=== PATIENT | female | born 1980 | race American Indian/Alaskan Native ===

== ENCOUNTER 2016-09-26 23:54 | Inpatient (IN) | payer MEDICAID ==
[2016-09-27 00:43] LABS: Basophils % (Auto) 0.3 % (0.0-1.8); Eosinophils % (Auto) 1.5 % (0.0-4.3); Hematocrit 33.4 % (30.3-42.9); Hemoglobin 10.5 gm/dl (10.1-14.3); Mean Corpuscular HGB Conc 31 % (30-34); Mean Corpuscular Volume 82 fl (79-97); Platelet Count 251 K/mm3 (140-440); Red Blood Count 4.06 M/mm3 (3.65-5.03); Red Cell Distribution Width 13.4 % (13.2-15.2)
[2016-09-27 00:47] LABS: Mean Corpuscular Hemoglobin 26 pg (28-32)
[2016-09-27 00:59] LABS: Anion Gap 16 mmol/L; BUN/Creatinine Ratio 11.42; Blood Urea Nitrogen 8 mg/dL (7-17); Carbon Dioxide 26 mmol/L (22-30); Chloride 101.9 mmol/L (98-107); Glucose 99 mg/dL (65-100); Potassium 4.1 mmol/L (3.6-5.0); Sodium 140 mmol/L (137-145)
[2016-09-27 05:27] LABS: Bilirubin,Urine NEG (Negative); Blood,Urine LG (Negative); Ketones,Urine NEG (Negative); Leukocyte Esterase,Urine NEG (Negative); Nitrite,Urine NEG (Negative); Protein,Urine <15 mg/dL mg/dL (Negative); Urobilinogen,Urine < 2.0 mg/dL (<2.0)
[2016-09-27] MEDS ORDERED: NITRO-BID 2% TP ONE (06:31)
[2016-09-27] MEDS ORDERED: ASPIRIN PO ONE (06:32)
[2016-09-27] MEDS ORDERED: ZOFRAN IV ONE (06:32)
[2016-09-27] MEDS ORDERED: MORPHINE IV ONE (06:32)
--- NOTE | 2016-09-27 06:36 | Emergency Department Report ---
HPI - General Chief Complaint: Chest Pain Time Seen by Provider: 09/27/16 06:25 - HPI HPI: Room 10 The patient is a 35-year-old female presenting with a chief complaint of chest pain. The patient states for the past 5 days she has had a constant substernal chest pain described as a pressure in nature. Patient denies shortness of breath, nausea/vomiting or diaphoresis. She denies cough, recent trauma or increased eructation. Patient states she's never had a stress test or cardiac catheterization. Location: Chest Duration: 5 days Quality: Pressure Severity:12/31 Modifying factors: Unknown Context: [see above] Mode of transportation: Unknown ED Past Medical Hx - Past Medical History Previous Medical History?: No - Surgical History Past Surgical History?: No - Family History Family history: no significant - Social History Smoking Status: Never Smoker Substance Use Type: None - Medications Home Medications: Home Medications Medication Instructions Recorded Confirmed Last Taken Type Ibuprofen [Motrin 800 MG tab] 800 mg PO TID PRN #30 tablet 12/08/14 Unknown Rx Salicylic Acid [Wart Remover] 1 each TP QDAY #10 adh..patch 12/08/14 Unknown Rx ED Review of Systems ROS: Stated complaint: CHEST PAIN Other details as noted in HPI Comment: All other systems reviewed and negative Constitutional: denies: chills, diaphoresis, fever Eyes: denies: eye pain, eye discharge, vision change ENT: denies: ear pain, throat pain Respiratory: denies: cough, shortness of breath, wheezing Cardiovascular: chest pain Endocrine: no symptoms reported Gastrointestinal: denies: abdominal pain, nausea, diarrhea Genitourinary: denies: urgency, dysuria, discharge Musculoskeletal: denies: back pain, joint swelling, arthralgia Skin: denies: rash, lesions Neurological: denies: headache, weakness, paresthesias Psychiatric: denies: anxiety, depression Hematological/Lymphatic: denies: easy bleeding, easy bruising Physical Exam - Physical Exam Vital Signs: Vital Signs 09/27/16 09/27/16 09/27/16 00:08 04:52 05:11 Temperature 98.5 F Pulse Rate 59 L 63 Respiratory 18 16 16 Rate Blood Pressure 132/65 Blood Pressure 107/57 [Left] O2 Sat by Pulse 100 100 100 Oximetry Physical Exam: GENERAL: The patient is well-developed well-nourished female lying on stretcher not appearing to be in acute distress. [] HEENT: Normocephalic. Atraumatic. Extraocular motions are intact. Patient has moist mucous membranes. NECK: Supple. Trachea midline CHEST/LUNGS: Clear to auscultation. There is no respiratory distress noted. HEART/CARDIOVASCULAR: Regular. There is no tachycardia. There is no gallop rub or murmur. ABDOMEN: Abdomen is soft, nontender. Patient has normal bowel sounds. There is no abdominal distention. SKIN: There is no rash. There is no edema. There is no diaphoresis. NEURO: The patient is awake, alert, and oriented. The patient is cooperative. The patient has normal speech MUSCULOSKELETAL: There is no evidence of acute injury. ED Course Vital Signs 09/27/16 09/27/16 09/27/16 00:08 04:52 05:11 Temperature 98.5 F Pulse Rate 59 L 63 Respiratory 18 16 16 Rate Blood Pressure 132/65 Blood Pressure 107/57 [Left] O2 Sat by Pulse 100 100 100 Oximetry ED Medical Decision Making - Lab Data Result diagrams: 09/27/16 00:18 09/27/16 00:18 Laboratory Tests 09/27/16 09/27/16 09/27/16 00:18 00:18 03:21 WBC 4.0 L RBC 4.06 Hgb 10.5 Hct 33.4 MCV 82 MCH 26 L MCHC 31 RDW 13.4 Plt Count 251 Lymph % (Auto) 39.4 H [place] % (Auto) 8.1 H Eos % (Auto) 1.5 Baso % (Auto) 0.3 Lymph # 1.6 [place] # 0.3 Eos # 0.1 Baso # 0.0 Seg Neutrophils % 50.7 Seg Neutrophils # 2.0 Sodium 140 Potassium 4.1 Chloride 101.9 Carbon Dioxide 26 Anion Gap 16 BUN 8 Creatinine 0.7 Estimated GFR > 60 BUN/Creatinine Ratio 11.42 Glucose 99 Calcium 9.0 Troponin T < 0.010 < 0.010 Urine Color Urine Turbidity Urine pH Ur Specific [place] Urine Protein Urine Glucose (UA) Urine Ketones Urine Blood Urine Nitrite Urine Bilirubin Urine Urobilinogen Ur Leukocyte Esterase Urine WBC (Auto) Urine RBC (Auto) U Epithel Cells (Auto) Urine HCG, Qual 09/27/16 04:51 WBC RBC Hgb Hct MCV MCH MCHC RDW Plt Count Lymph % (Auto) [place] % (Auto) Eos % (Auto) Baso % (Auto) Lymph # [place] # Eos # Baso # Seg Neutrophils % Seg Neutrophils # Sodium Potassium Chloride Carbon Dioxide Anion Gap BUN Creatinine Estimated GFR BUN/Creatinine Ratio Glucose Calcium Troponin T Urine Color Straw Urine Turbidity Clear Urine pH 6.0 Ur Specific [place] 1.009 Urine Protein <15 mg/dl Urine Glucose (UA) Neg Urine Ketones Neg Urine Blood Lg Urine Nitrite Neg Urine Bilirubin Neg Urine Urobilinogen < 2.0 Ur Leukocyte Esterase Neg Urine WBC (Auto) 0.0 Urine RBC (Auto) 1.0 U Epithel Cells (Auto) < 1.0 Urine HCG, Qual Negative - EKG Data -: EKG Interpreted by Me EKG shows normal: sinus rhythm Rate: bradycardia (50 bpm) - EKG Data When compared to previous EKG there are: previous EKG unavailable Interpretation: other (no ischemic changes seen) - Radiology Data Radiology results: image reviewed (chest x-ray) interpreted by me: Chest x-ray-no focal infiltrates, no pneumothorax - Differential Diagnosis ACS, GERD, pericarditis, pneumonia, bronchitis Critical care attestation.: If time is entered above; I have spent that time in minutes in the direct care of this critically ill patient, excluding procedure time. ED Disposition Clinical Impression: Chest pain Disposition: DISCHARGED TO HOME OR SELFCARE Is pt being admited?: Yes Does the pt Need Aspirin: Yes Condition: Fair Instructions: Chest Pain (ED) Referrals: PRIMARY CARE, [Primary Care Provider] - 3-5 Days Time of Disposition: 07:08 (hospitalist paged)
--- NOTE | 2016-09-27 07:31 | History and Physical Report ---
History of Present Illness Date of examination: 09/27/16 Date of admission: 09/27/16 Chief complaint: chest pain 1 day History of present illness: Morbidly obese 35 yr old female patient presented to ER with lt sided chest pain intermittent for the last 4-5 days, worse since yesterday Patient data sustained between 8-9 or 10 at its peak, denies chest pain the time of my evaluation denies nausea vomiting or abdominal pain, denies headache dizziness weakness or numbness, denies orthopnea proximal nocturnal dyspnea First of cardiac enzymes negative Past History Past Medical History: GERD Past Surgical History: Other (tubal ligation) Social history: lives with family, full code. denies: smoking, alcohol abuse, prescription drug abuse Family history: hypertension Medications and Allergies Allergies Allergy/AdvReac Type Severity Reaction Status Date / Time No Known Allergies Allergy Unverified 09/27/16 00:08 Home Medications Medication Instructions Recorded Confirmed Last Taken Type Ibuprofen [Motrin 800 MG tab] 800 mg PO TID PRN #30 tablet 12/08/14 Unknown Rx Salicylic Acid [Wart Remover] 1 each TP QDAY #10 adh..patch 12/08/14 Unknown Rx Active Meds: Active Medications Aspirin (Aspirin) 325 mg PO QDAY FERNANDO Atorvastatin Calcium (Lipitor) 10 mg PO QHS FERNANDO Lisinopril (Zestril) 2.5 mg PO QDAY FERNANDO Metoprolol Tartrate (Lopressor) 12.5 mg PO BID FERNANDO Review of Systems Constitutional: no weight loss, no weight gain, no fever, no chills Ears, nose, mouth and throat: no nasal congestion, no nasal discharge Cardiovascular: chest pain, no orthopnea, no palpitations, no shortness of breath Respiratory: no cough with sputum, no shortness of breath Gastrointestinal: no abdominal pain, no nausea, no vomiting Genitourinary Female: no pelvic pain, no dysuria Musculoskeletal: no myalgias, no arthritis Integumentary: no rash, no lesions Psychiatric: no anxiety, no depression Endocrine: no cold intolerance, no heat intolerance Hematologic/Lymphatic: no easy bruising, no easy bleeding Allergic/Immunologic: no urticaria, no allergic rhinitis Exam - Constitutional Vitals: Temp Pulse Resp BP Pulse Ox 98.5 F 80 16 110/61 100 09/27/16 00:08 09/27/16 07:00 09/27/16 07:00 09/27/16 07:00 09/27/16 07:00 General appearance: Present: no acute distress, well-nourished, obese (morbidly) - EENT Eyes: Present: PERRL, EOM intact - Neck Neck: Present: supple, normal ROM - Respiratory Respiratory effort: normal Respiratory: bilateral: diminished, negative: rales, rhonchi, wheezing - Cardiovascular Rhythm: regular Heart Sounds: Present: S1 & S2 - Extremities Extremities: no ischemia, pulses intact, pulses symmetrical - Abdominal General gastrointestinal: Present: soft, non-tender, non-distended, normal bowel sounds - Integumentary Integumentary: Present: clear, warm - Musculoskeletal Musculoskeletal: strength equal bilaterally - Psychiatric Psychiatric: appropriate mood/affect, cooperative - Neurologic Neurologic: CNII-XII intact, moves all extremities Results - Labs CBC & Chem 7: 09/27/16 00:18 09/27/16 00:18 Labs: Abnormal lab results 09/27/16 Range/Units 00:18 WBC 4.0 L (4.5-11.0) K/mm3 MCH 26 L (28-32) pg Lymph % (Auto) 39.4 H (13.4-35.0) % [place] % (Auto) 8.1 H (0.0-7.3) % Assessment and Plan -- Chest pain/angina Rule out acute coronary syndrome, seasonal cardiac enzymes, EKG Echocardiogram from different function ejection fraction, managed with aspirin and beta blockers and yuriy inhibitors nitrates and statins Patient will benefit by Lexiscan stress test to rule out any reversible ischemia If negative and patient is stable and recommended discharge her home --Morbid obesity On signs and patient advised that modification and exercise as tolerated and weight reduction Patient is medically stable --Gastroesophageal reflux disease Pepcid 20 mg twice a day --Dvt prophylaxis With Lovenox Closer monitor the patient and adjust management as needed Follow stress test if negative can be discharged home Plan of care discussed with the patient the ER physician as well as the nurse
[2016-09-27] MEDS ORDERED: NITROSTAT SL PRN (08:52)
--- NOTE | 2016-09-27 09:23 | XRay Report ---
AP CHEST: HISTORY: chest pain AP view of the chest demonstrates a normal mediastinal and cardiac contour with clear lungs and normal bony and soft tissue structures. IMPRESSION: Unremarkable AP chest.
[2016-09-27] MEDS ORDERED: MORPHINE IV PRN (09:30)
[2016-09-27] MEDS ORDERED: LEXISCAN IV ONE (09:44)
[2016-09-27] MEDS ORDERED: ASPIRIN PO SCH (10:00)
[2016-09-27] MEDS ORDERED: PEPCID PO SCH (10:00)
[2016-09-27] MEDS ORDERED: LOPRESSOR PO SCH (10:00)
[2016-09-27] MEDS ORDERED: ZESTRIL PO SCH (10:00)
--- NOTE | 2016-09-27 14:43 | Discharge Summary ---
Providers - Providers Date of Admission: 09/27/16 07:13 Date of discharge: 09/27/16 Attending physician: LESLEE HUBER Primary care physician: [facility] Hospitalization Reason for admission: chest pain Condition: Fair Pertinent studies: Stress test; negative for reversible ischemia and normal LV function Chest x-ray; no acute cardiopulmonary abnormality noted Hospital course: Jannette dyson morbidly obese 25-year-old -[place] female patient with significant past medical history of gastroesophageal reflux disease not on any medications was admitted to emergency room this morning. The left-sided chest pain Symptomatically managed subsequently underwent stress test which was negative for reversible ischemia Patient's symptoms significantly improved, patient's gastroesophageal reflux disease treated with Protonix and supportive care Today patient is comfortable in bed denies any chest pain or shortness of breath Alert awake oriented 3 not in acute distress Beya-oe-snre evaluation physical examination in many potential discharge is unremarkable as detailed below Advised to follow with primary care physician Advised to see ship keeper if she should have recurrent chest pain or shortness of breath. For that evaluation or go to emergency room as needed Patient also advised dietary modification and exercise as tolerated and weight reduction when medically stable Agent is hemodynamically stable for discharge and does not need any further acute inpatient care this time Final diagnosis; Gastroesophageal reflux disease Atypical chest pain Negative stress test Chest pain probably secondary GERD Morbid obesity Disposition: DISCHARGED TO HOME OR SELFCARE Time spent for discharge: 32 MIN Core Measure Documentation - Palliative Care Palliative Care/ Comfort Measures: Not Applicable - Core Measures Any of the following diagnoses?: none Exam - Constitutional Vitals: Temp Pulse Resp BP Pulse Ox 98.5 F 51 L 16 94/53 100 09/27/16 00:08 09/27/16 11:18 09/27/16 08:32 09/27/16 11:18 09/27/16 08:32 General appearance: Present: no acute distress, well-nourished - EENT Eyes: Present: PERRL, EOM intact - Neck Neck: Present: supple, normal ROM - Respiratory Respiratory effort: normal Respiratory: negative: rales, rhonchi, wheezing - Cardiovascular Rhythm: regular Heart Sounds: Present: S1 & S2 - Extremities Extremities: no ischemia, pulses intact, pulses symmetrical Peripheral Pulses: within normal limits - Abdominal General gastrointestinal: Present: soft, non-tender, non-distended, normal bowel sounds - Integumentary Integumentary: Present: clear, warm - Musculoskeletal Musculoskeletal: strength equal bilaterally - Psychiatric Psychiatric: appropriate mood/affect, cooperative - Neurologic Neurologic: CNII-XII intact, moves all extremities Plan Activity: no restrictions Diet: regular Additional Instructions: If you have recurrent chest pain, GO to emergency room or contact [email or web address] Follow up with: PRIMARY CARE, [Primary Care Provider] - 3-5 Days Prescriptions: Famotidine [Pepcid] 20 mg PO BID #30 tablet oxyCODONE /ACETAMINOPHEN [Percocet 5/325] 1 tab PO BID PRN #10 tablet PRN Reason: Pain
[2016-09-27 15:33] VITALS: BP 116/53
[2016-09-27 16:38] LABS: Creatine Kinase 70 units/L (30-135)
[2016-09-27 16:49] LABS: Creatine Kinase MB < 1.0 ng/mL (0.0-4.0)
[2016-09-27] MEDS ORDERED: LOVENOX SUB-Q SCH (22:00)
--- NOTE | 2016-09-28 09:49 | Treadmill Report ---
THALLIUM STRESS TEST LEFT VENTRICLE: Left ventricular chamber size is within normal. Perfusion study demonstrates evidence of breast attenuation artifact. Otherwise, homogeneous uptake of the tracer in all segments on the stress images. Gated analysis demonstrates normal left ventricular systolic function, ejection fraction 59%. CONCLUSION: Normal myocardial perfusion study. JOB# [id number] CA/NTS
== END 2016-09-27 17:46 | disposition home or self-care (01) | DRG 392 ==
LOC: ED 23:54 → 4A 09-27 07:13
PROVIDERS: ADMIT Internal Medicine; ATTEND Internal Medicine
DX: K21.9 Gastro-esophageal reflux disease without esophagitis (principal); E66.01 Morbid (severe) obesity due to excess calories; Z68.42 Body mass index [BMI] 45.0-49.9, adult; Z98.51 Tubal ligation status; Z82.49 Family history of ischemic heart disease and other diseases of the circulatory system
CPT/HCPCS: 36415; 71010; 78452; 80048; 80061; 81001; 81025; 82550; 82553; 84484; 85025; 93005; 93010; 93017; 96374; 96375; A9502; J2270; J2405; J2785

== ENCOUNTER 2017-01-04 08:46 | Emergency (ER) | payer MEDICAID ==
[2017-01-04 09:23] LABS: Basophils % (Auto) 0.2 % (0.0-1.8); Eosinophils % (Auto) 1.2 % (0.0-4.3); Hematocrit 34.2 % (30.3-42.9); Hemoglobin 10.6 gm/dl (10.1-14.3); Mean Corpuscular HGB Conc 31 % (30-34); Mean Corpuscular Volume 82 fl (79-97); Platelet Count 246 K/mm3 (140-440); Red Blood Count 4.18 M/mm3 (3.65-5.03); Red Cell Distribution Width 13.4 % (13.2-15.2); White Blood Count 3.8 K/mm3 (4.5-11.0)
[2017-01-04 09:24] LABS: Mean Corpuscular Hemoglobin 25 pg (28-32)
[2017-01-04 09:55] LABS: Anion Gap 14 mmol/L; BUN/Creatinine Ratio 12.85; Blood Urea Nitrogen 9 mg/dL (7-17); Calcium 8.7 mg/dL (8.4-10.2); Carbon Dioxide 26 mmol/L (22-30); Chloride 104.6 mmol/L (98-107); Glucose 79 mg/dL (65-100); Potassium 4.5 mmol/L (3.6-5.0); Sodium 140 mmol/L (137-145)
--- NOTE | 2017-01-04 10:39 | XRay Report ---
CHEST 2 VIEWS INDICATION: Shortness of breath. COMPARISON: None similar. FINDINGS: PA and lateral chest radiographs again demonstrate limited inspiration with slight exaggerated heart size. Normal mediastinal and hilar contours. No pleural effusions or CHF. Intact bones. Probable cholecystectomy clips. CONCLUSION: No definite acute chest process, as described. Thank you for the opportunity to participate in this patient's care.
--- NOTE | 2017-01-04 11:06 | Emergency Department Report ---
Chief Complaint: Dyspnea/Respdistress Stated Complaint: SOB Time Seen by Provider: 01/04/17 11:02 - HPI History of Present Illness: PT c/o sob that started this morning around 0700. 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 - ROS Review of Systems: - fever - cough + lle edema x weeks - chest pain - Exam Vital Signs: Vital Signs 01/04/17 08:51 Temperature 98.6 F Pulse Rate 65 Respiratory 20 Rate Blood Pressure 136/71 O2 Sat by Pulse 100 Oximetry Physical Exam: no acute resp distress. no L calf tenderness. steady gait MSE screening note: Focused history and physical exam performed. Due to findings the following was ordered: labs ED Medical Decision Making - Lab Data Result diagrams: 01/04/17 09:05 01/04/17 09:05 ED Disposition for MSE Condition: Stable Referrals: PRIMARY CARE, [Primary Care Provider] - 3-5 Days
[2017-01-04 12:01] LABS: INR 0.95 (0.87-1.13)
[2017-01-04 12:02] LABS: Partial Thromboplastin Time 33.2 Sec. (24.2-36.6)
--- NOTE | 2017-01-04 14:12 | Emergency Department Report ---
ED Shortness of Breath HPI - General Chief Complaint: Dyspnea/Respdistress Stated Complaint: SOB Time Seen by Provider: 01/04/17 11:02 Source: patient Mode of arrival: Ambulatory Limitations: No Limitations - History of Present Illness Initial Comments: Patient is a 36-year-old female with no medical history presents with dyspnea with exertion. Patient states that while she was at work she was sweeping and began to feel short of breath. She had a hard time catching her breath and had to sit down. She had no chest pain noted abdominal pain. She did complain of some slight leg pain. Denies other fevers chills cough. MD Complaint: shortness of breath -: Sudden - Related Data Home Medications Medication Instructions Recorded Confirmed Last Taken No Known Home Medications [No 01/04/17 01/04/17 Unknown Reported Home Medications] Allergies Allergy/AdvReac Type Severity Reaction Status Date / Time No Known Allergies Allergy Verified 01/04/17 08:50 ED Review of Systems ROS: Stated complaint: SOB Other details as noted in HPI Comment: All other systems reviewed and negative Constitutional: denies: chills, fever Eyes: denies: eye pain, eye discharge, vision change ENT: denies: ear pain, throat pain Respiratory: shortness of breath, SOB with exertion. denies: cough, wheezing Cardiovascular: denies: chest pain, palpitations Endocrine: no symptoms reported Gastrointestinal: denies: abdominal pain, nausea, diarrhea Genitourinary: denies: urgency, dysuria, discharge Musculoskeletal: other (leg pain). denies: back pain, joint swelling, arthralgia Skin: denies: rash, lesions Neurological: denies: headache, weakness, paresthesias Psychiatric: denies: anxiety, depression Hematological/Lymphatic: denies: easy bleeding, easy bruising ED Past Medical Hx - Past Medical History Hx Congestive Heart Failure: No Hx Diabetes: No Hx Asthma: No Hx COPD: No - Family History Family history: no significant - Social History Smoking Status: Never Smoker Substance Use Type: None - Medications Home Medications: Home Medications Medication Instructions Recorded Confirmed Last Taken Type No Known Home Medications [No 01/04/17 01/04/17 Unknown History Reported Home Medications] ED Physical Exam - General Limitations: No Limitations General appearance: alert, in no apparent distress - Head Head exam: Present: atraumatic, normocephalic - Eye Eye exam: Present: normal appearance. Absent: scleral icterus, conjunctival injection - ENT ENT exam: Present: mucous membranes moist - Neck Neck exam: Present: normal inspection - Respiratory Respiratory exam: Present: normal lung sounds bilaterally. Absent: respiratory distress, wheezes, rales, rhonchi - Cardiovascular Cardiovascular Exam: Present: regular rate, normal rhythm, normal heart sounds. Absent: systolic murmur, diastolic murmur, rubs, gallop - GI/Abdominal GI/Abdominal exam: Present: soft, normal bowel sounds - Extremities Exam Extremities exam: Present: normal inspection - Back Exam Back exam: Present: normal inspection - Neurological Exam Neurological exam: Present: alert, oriented X3 - Psychiatric Psychiatric exam: Present: normal affect, normal mood - Skin Skin exam: Present: warm, dry, intact, normal color. Absent: rash ED Course Vital Signs 01/04/17 01/04/17 01/04/17 08:51 14:15 14:16 Temperature 98.6 F Pulse Rate 65 62 62 Respiratory 20 17 Rate Blood Pressure 136/71 Blood Pressure 128/70 [Left] O2 Sat by Pulse 100 100 Oximetry ED Medical Decision Making - Lab Data Result diagrams: 01/04/17 09:05 01/04/17 09:05 Laboratory Results - last 24 hr 01/04/17 01/04/17 01/04/17 09:04 09:05 09:05 WBC 3.8 L RBC 4.18 Hgb 10.6 Hct 34.2 MCV 82 MCH 25 L MCHC 31 RDW 13.4 Plt Count 246 Lymph % (Auto) 32.7 [place] % (Auto) 9.0 H Eos % (Auto) 1.2 Baso % (Auto) 0.2 Lymph # 1.2 [place] # 0.3 Eos # 0.0 Baso # 0.0 Seg Neutrophils % 56.9 Seg Neutrophils # 2.2 PT INR APTT Sodium 140 Potassium 4.5 Chloride 104.6 Carbon Dioxide 26 Anion Gap 14 BUN 9 Creatinine 0.7 Estimated GFR > 60 BUN/Creatinine Ratio 12.85 Glucose 79 Calcium 8.7 Troponin T < 0.010 NT-Pro-B Natriuret Pep 76.77 HCG, Qual 01/04/17 01/04/17 09:09 11:07 WBC RBC Hgb Hct MCV MCH MCHC RDW Plt Count Lymph % (Auto) [place] % (Auto) Eos % (Auto) Baso % (Auto) Lymph # [place] # Eos # Baso # Seg Neutrophils % Seg Neutrophils # PT 12.6 INR 0.95 APTT 33.2 Sodium Potassium Chloride Carbon Dioxide Anion Gap BUN Creatinine Estimated GFR BUN/Creatinine Ratio Glucose Calcium Troponin T NT-Pro-B Natriuret Pep HCG, Qual Negative - EKG Data 01/04/17 14:10 Sinus bradycardia rate of 55 normal axis normal intervals baseline EKG is also slightly wavy but no obvious ST-T wave changes. - Medical Decision Making 36-year-old female presents to the emergency department with shortness of breath. No chest pain. She does have some slight left leg pain. Plan to get Doppler of left leg and will reassess. She has negative labs and normal EKG. I suspicion for ACS is extremely low. If Doppler of left leg is negative plan discharge home. Patient's symptoms are currently resolved. DVT study negative. Patient will be discharged home. Portions of this chart were dictated with dictation software. There may be dictation errors contained within this note. Critical care attestation.: If time is entered above; I have spent that time in minutes in the direct care of this critically ill patient, excluding procedure time. ED Disposition Clinical Impression: Dyspnea Disposition: DC-01 TO HOME OR SELFCARE Is pt being admited?: No Condition: Stable Instructions: Dyspnea (ED) Referrals: PRIMARY CARE, [Primary Care Provider] - 3-5 Days
[2017-01-04 14:16] VITALS: BP 128/70
--- NOTE | 2017-01-05 16:02 | Vascular Lab Report ---
Left Lower Extremity Venous Duplex Study: Reason for Exam: Pain of the left lower extremity. Comments on the Right: A limited duplex study was done of the proximal veins of the right lower extremity. All veins visualized are freely compressible without evidence of internal echogenicity. Flow is spontaneous and phasic throughout. No evidence of acute or chronic thrombus is seen in any of the vessels visualized. Comments on the Left: All veins visualized are freely compressible without evidence of internal echogenicity. Flow is spontaneous and phasic throughout. No evidence of acute or chronic thrombus is seen in any of the vessels visualized. Impression: No evidence of acute or chronic deep venous thrombosis in the left lower extremity.
== END 2017-01-04 15:12 | disposition home or self-care (01) ==
LOC: ED 08:46
DX: R06.02 Shortness of breath (principal)
CPT/HCPCS: 36415; 71020; 80048; 83880; 84484; 84703; 85025; 85610; 85730; 93005; 93010

== ENCOUNTER 2017-05-16 08:09 | Emergency (ER) | payer MEDICAID ==
[2017-05-16 08:20] VITALS: BP 119/43
[2017-05-16 08:41] LABS: Basophils % (Auto) 0.2 % (0.0-1.8); Eosinophils % (Auto) 0.9 % (0.0-4.3); Hematocrit 36.6 % (30.3-42.9); Hemoglobin 11.5 gm/dl (10.1-14.3); Mean Corpuscular HGB Conc 31 % (30-34); Mean Corpuscular Volume 82 fl (79-97); Platelet Count 272 K/mm3 (140-440); Red Blood Count 4.48 M/mm3 (3.65-5.03); Red Cell Distribution Width 13.6 % (13.2-15.2); White Blood Count 4.1 K/mm3 (4.5-11.0)
[2017-05-16 08:46] LABS: Mean Corpuscular Hemoglobin 26 pg (28-32)
[2017-05-16 08:52] LABS: Bilirubin,Urine NEG (Negative); Blood,Urine NEG (Negative); Ketones,Urine NEG (Negative); Leukocyte Esterase,Urine SM (Negative); Mucus,Urine 2+ /HPF; Nitrite,Urine NEG (Negative); Protein,Urine <15 mg/dL mg/dL (Negative)
[2017-05-16 09:01] LABS: Alanine Aminotransferase 7 units/L (7-56); Albumin 3.5 g/dL (3.9-5); Albumin/Globulin Ratio 1.1 %; Alkaline Phosphatase 82 units/L (35-129); Anion Gap 17 mmol/L; BUN/Creatinine Ratio 16; Bilirubin,Total < 0.20 mg/dL (0.1-1.2); Blood Urea Nitrogen 11 mg/dL (7-17); Calcium 8.5 mg/dL (8.4-10.2); Carbon Dioxide 23 mmol/L (22-30); Chloride 102.4 mmol/L (98-107); Glucose 100 mg/dL (65-100); Lipase 36 units/L (13-60); Potassium 4.2 mmol/L (3.6-5.0); Sodium 138 mmol/L (137-145); Total Protein 6.6 g/dL (6.3-8.2)
[2017-05-16] MEDS ORDERED: TORADOL IM ONE (10:59)
--- NOTE | 2017-05-16 11:04 | Emergency Department Report ---
ED Back Pain/Injury HPI - General Chief Complaint: Back Pain/Injury Stated Complaint: R SIDE/LOWER BACK PAIN Time Seen by Provider: 05/16/17 10:47 Source: patient Limitations: No Limitations - History of Present Illness Initial Comments: This is a 36-year-old female nontoxic, well nourished in appearance, no acute signs of distress presents to the ED with c/o of back pain x3 days. Patient stated she wake up with these symptoms. Patient denies any trauma to the region. Patient describes pain as aching with level of 8/10 and patient stated patient radiates to right lower extremity. Patient denies any bladder or bowel instability, dysuria, hematuria, polyuria, fever, chills, headache, nausea, vomiting, chest pain, shortness of breathe, stiff neck, abdominal pain. Patient also stated has dark colored urine but denies any odor. Patient denies any numbness or tingling. Patient denies any allergies or significant PMH. MD Complaint: back pain -: days(s) (3) Similar Symptoms Previously: No Place: home Radiation: right leg Severity: mild Severity scale (0 -10): 8 Quality: aching Consistency: constant Improves With: none Worsens With: none Associated Symptoms: denies other symptoms. denies: weakness, chest pain, numbness, difficulty walking, cough, difficulty urinating, diaphoresis, incontinence, fever/chills, constipation, headaches, abdominal pain, loss of appetite, malaise, nausea/vomiting, rash, seizure, shortness of breath, syncope - Related Data Previous Rx's Medication Instructions Recorded Last Taken Type Cyclobenzaprine [Flexeril] 10 mg PO QHS PRN #7 tablet 05/16/17 Unknown Rx Ibuprofen [Motrin] 600 mg PO Q8H PRN #30 tablet 05/16/17 Unknown Rx Allergies Allergy/AdvReac Type Severity Reaction Status Date / Time No Known Allergies Allergy Verified 01/04/17 08:50 ED Review of Systems ROS: Stated complaint: R SIDE/LOWER BACK PAIN Other details as noted in HPI Constitutional: denies: chills, fever Eyes: denies: eye pain, eye discharge, vision change ENT: denies: ear pain, throat pain Respiratory: denies: cough, shortness of breath, wheezing Cardiovascular: denies: chest pain, palpitations Endocrine: no symptoms reported Gastrointestinal: denies: abdominal pain, nausea, diarrhea Genitourinary: denies: urgency, dysuria, discharge Musculoskeletal: back pain. denies: joint swelling, arthralgia Skin: denies: rash, lesions Neurological: denies: headache, weakness, paresthesias Psychiatric: denies: anxiety, depression Hematological/Lymphatic: denies: easy bleeding, easy bruising ED Past Medical Hx - Past Medical History Previous Medical History?: Yes Hx Congestive Heart Failure: No Hx Diabetes: No Hx Asthma: No Hx COPD: No Additional medical history: Vaginal delivery x 4 - Surgical History Past Surgical History?: Yes Hx Cholecystectomy: Yes Additional Surgical History: Tubaligation - Social History Smoking Status: Never Smoker Substance Use Type: Non Opiate Pain - Medications Home Medications: Home Medications Medication Instructions Recorded Confirmed Last Taken Type Cyclobenzaprine [Flexeril] 10 mg PO QHS PRN #7 tablet 05/16/17 Unknown Rx Ibuprofen [Motrin] 600 mg PO Q8H PRN #30 tablet 05/16/17 Unknown Rx ED Physical Exam - General Limitations: No Limitations General appearance: alert, in no apparent distress - Head Head exam: Present: atraumatic, normocephalic, normal inspection - Eye Eye exam: Present: normal appearance, PERRL, EOMI. Absent: scleral icterus, conjunctival injection, nystagmus, periorbital swelling, periorbital tenderness Pupils: Present: normal accommodation - ENT ENT exam: Present: normal exam, normal orophraynx, mucous membranes moist, TM's normal bilaterally, normal external ear exam - Neck Neck exam: Present: normal inspection, full ROM. Absent: tenderness, meningismus, lymphadenopathy, thyromegaly - Respiratory Respiratory exam: Present: normal lung sounds bilaterally. Absent: respiratory distress, wheezes, rales, rhonchi, stridor, chest wall tenderness, accessory muscle use, decreased breath sounds, prolonged expiratory - Cardiovascular Cardiovascular Exam: Present: regular rate, normal rhythm, normal heart sounds. Absent: bradycardia, tachycardia, irregular rhythm, systolic murmur, diastolic murmur, rubs, gallop - GI/Abdominal GI/Abdominal exam: Present: soft, normal bowel sounds. Absent: distended, tenderness, guarding, rebound, rigid, diminished bowel sounds - Rectal Rectal exam: Present: deferred - Extremities Exam Extremities exam: Present: normal inspection, full ROM, normal capillary refill. Absent: tenderness, pedal edema, joint swelling, calf tenderness - Back Exam Back exam: Present: normal inspection, full ROM, paraspinal tenderness (right lumbar region). Absent: tenderness, CVA tenderness (R), CVA tenderness (L), muscle spasm, vertebral tenderness, rash noted - Expanded Back Exam Expanded Back exam: Present: normal rectal tone (as per patient). Absent: saddle anesthesia Back exam: Negative Straight Leg Raising: Left, Right - Neurological Exam Neurological exam: Present: alert, oriented X3, CN II-XII intact, normal gait, reflexes normal - Psychiatric Psychiatric exam: Present: normal affect, normal mood - Skin Skin exam: Present: warm, dry, intact, normal color. Absent: rash ED Course Vital Signs 05/16/17 05/16/17 08:15 11:09 Temperature 98.4 F Pulse Rate 64 Respiratory 18 16 Rate Blood Pressure 119/43 O2 Sat by Pulse 98 Oximetry - Reevaluation(s) Reevaluation #1: 05/16/17 11:05 Patient is speaking in full sentences with no signs of distress noted. ED Medical Decision Making - Lab Data Result diagrams: 05/16/17 08:31 05/16/17 08:24 - Medical Decision Making This is a 36-year-old female that presents with low back strain. Patient is stable and was examined by me. UA obtained within normal limits. CBC, BMP obtained within normal limits. Patient received Toradol in the ED which patient stated symptoms has improved and subsided. Patient stated she feels much better. Patient is discharge with flexeril and motrin and was instructed not to operate any machinery while taking flexerl. Patient was instructed Follow-up with your primary care doctor in 3-5 days or if symptoms worsen such as bladder or bowel stability, chest pain, short of breath, numbness or tingling sensation in extremities, headache, dizziness, visual changes, nausea vomiting, or abdominal pain, return back to emergency room as was possible. At time time of discharge, the patient does not seem toxic or ill in appearance. No acute signs of distress noted. Patient agrees to discharge treatment plan of care. No further questions noted by the patient. Critical care attestation.: If time is entered above; I have spent that time in minutes in the direct care of this critically ill patient, excluding procedure time. ED Disposition Clinical Impression: Low back strain Qualifiers: Encounter type: initial encounter Qualified Code(s): S39.012A - Strain of muscle, fascia and tendon of lower back, initial encounter Disposition: TO HOME OR SELFCARE Is pt being admited?: No Does the pt Need Aspirin: No Condition: Stable Instructions: Ibuprofen (By mouth), Cyclobenzaprine (By mouth), Low Back Strain (ED) Additional Instructions: Follow-up with your primary care doctor in 3-5 days or if symptoms worsen such as bladder or bowel stability, chest pain, short of breath, numbness or tingling sensation in extremities, headache, dizziness, visual changes, nausea vomiting, or abdominal pain, return back to emergency room as was possible. Take ibuprofen and Flexeril as prescribed. Do not operate heavy machinery while taking Flexeril due to sedation Prescriptions: Cyclobenzaprine [Flexeril] 10 mg PO QHS PRN #7 tablet PRN Reason: Muscle Spasm Ibuprofen [Motrin] 600 mg PO Q8H PRN #30 tablet PRN Reason: Pain Referrals: PRIMARY CAREMD [Primary Care Provider] - 3-5 Days BRITTNY ELIAS MD [Staff Physician] - 3-5 Days [facility] [Outside] - 3-5 Days [facility] [Outside] - 3-5 Days Forms: Work/School Release Form(ED)
== END 2017-05-16 11:32 | disposition home or self-care (01) ==
LOC: ED 08:09
DX: S39.012A Strain of muscle, fascia and tendon of lower back, initial encounter (principal); X58.XXXA Exposure to other specified factors, initial encounter; Y93.89 Activity, other specified; Y92.89 Other specified places as the place of occurrence of the external cause; Y99.8 Other external cause status
CPT/HCPCS: 36415; 80053; 81001; 83690; 85025; 96372; 99283; J1885

== ENCOUNTER 2017-05-27 07:09 | Emergency (ER) | payer MEDICAID ==
[2017-05-27] MEDS ORDERED: ASPIRIN PO ONE (07:51)
[2017-05-27 07:52] VITALS: BP 95/60
[2017-05-27 08:24] LABS: Hematocrit 37.5 % (30.3-42.9); Hemoglobin 11.6 gm/dl (10.1-14.3); Mean Corpuscular HGB Conc 31 % (30-34); Mean Corpuscular Volume 81 fl (79-97); Platelet Count 210 K/mm3 (140-440); Red Blood Count 4.64 M/mm3 (3.65-5.03); Red Cell Distribution Width 13.7 % (13.2-15.2)
[2017-05-27 08:25] LABS: Mean Corpuscular Hemoglobin 25 pg (28-32)
[2017-05-27 08:42] LABS: BUN/Creatinine Ratio 7; Blood Urea Nitrogen 5 mg/dL (7-17); Hemolysis Index 10
--- NOTE | 2017-05-27 11:16 | XRay Report ---
ROUTINE CHEST, TWO VIEWS: Chest pain. PA and lateral views demonstrate the heart and mediastinal contour to be of normal size and shape. The lungs are clear and fully expanded and the soft tissues and bony structures are normal. IMPRESSION: Normal study.
[2017-05-27 14:04] LABS: Basophils % (Manual) 0 % (0.0-1.8); RBC Morphology Normal; Total Cells Counted 100
[2017-05-27] MEDS ORDERED: ALUM-MAG HYDROX-SIMETH 200-200-20MG/5ML PO ONE (16:50)
[2017-05-27] MEDS ORDERED: LIDOCAINE VISCOUS 2% PO ONE (16:50)
[2017-05-27] MEDS ORDERED: PEPCID PO ONE (16:51)
--- NOTE | 2017-05-27 17:09 | Emergency Department Report ---
HPI - General Chief Complaint: Chest Pain Time Seen by Provider: 05/27/17 15:55 - HPI HPI: The patient's 36-year-old female presents for evaluation of chest pain. The patient reports midsternal chest pain, burning and crampy in quality, present for the past one day, exacerbated with drinking Coca[employer], currently 5/10 in severity. The patient denies fever, trauma to the chest, cough, syncope, hemoptysis, unilateral leg swelling, recent immobilization, history of DVT or PE , recent cancer, history of familial coagulation disorder. ED Past Medical Hx - Past Medical History Previous Medical History?: No Hx Congestive Heart Failure: No Hx Diabetes: No Hx Asthma: No Hx COPD: No Additional medical history: Vaginal delivery x 4 - Surgical History Past Surgical History?: Yes Hx Cholecystectomy: Yes (2002) Additional Surgical History: Tubaligation (2001) - Social History Smoking Status: Never Smoker Substance Use Type: None - Medications Home Medications: Home Medications Medication Instructions Recorded Confirmed Last Taken Type Cyclobenzaprine [Flexeril] 10 mg PO QHS PRN #7 tablet 05/16/17 Unknown Rx Ibuprofen [Motrin] 600 mg PO Q8H PRN #30 tablet 05/16/17 Unknown Rx Omeprazole Magnesium [PriLOSEC Otc] 20 mg PO QDAY #14 tablet. 05/27/17 Unknown Rx traMADol [Ultram 50 MG tab] 50 mg PO Q6HR PRN #12 tablet 05/27/17 Unknown Rx ED Review of Systems ROS: Stated complaint: CHEST PAIN Other details as noted in HPI Constitutional: denies: fever ENT: denies: throat or neck pain Respiratory: denies: cough, shortness of breath Cardiovascular: reports: chest pain Endocrine: denies unexplained weight loss or gain Gastrointestinal: denies: abdominal pain, nausea Genitourinary: denies: dysuria Musculoskeletal: denies: leg swelling Skin: denies: rash Neurological: denies: headache Hematological/Lymphatic: denies: easy bleeding or easy bruising Psych: denies sadness or hopelessness Physical Exam - Physical Exam Vital Signs: Vital Signs 05/27/17 07:45 Temperature 99.3 F Pulse Rate 66 Respiratory 20 Rate Blood Pressure 95/60 Blood Pressure 95/60 [Right] O2 Sat by Pulse 100 Oximetry Physical Exam: General: well-nourished, well-developed, no acute distress Head: Normocephalic, atraumatic Eyes: normal sclera ENT: Mucous membranes are pink and moist Neck: trachea midline, neck supple, No neck stiffness, no cervical adenopathy Respiratory: Breath sounds equal bilaterally, no wheezing, rales, or rhonchi Cardio: S1 and S2 present, no murmurs, rubs, gallops, capillary refill is brisk Abdomen: Normoactive bowel sounds, soft abdomen, no rigidity, no guarding or rebound tenderness Musc: No pitting edema Skin: No rash Neuro: no facial drooping, normal speech Psych: Normal affect ED Course Vital Signs 05/27/17 07:45 Temperature 99.3 F Pulse Rate 66 Respiratory 20 Rate Blood Pressure 95/60 Blood Pressure 95/60 [Right] O2 Sat by Pulse 100 Oximetry ED Medical Decision Making - Lab Data Result diagrams: 05/27/17 08:15 05/27/17 08:12 - Medical Decision Making The patient was seen and examined by myself. The patient is placed on a rn cardiac rehab and continuous pulse ox. On initial evaluation, the patient was found to be in no distress. EKG was negative for findings suggestive of acute cardiac infarct. Labs and imaging are obtained. The patient given a GI cocktail for her pain. Chest x-ray is negative for pneumothorax, focal consolidation, pulmonary vascular congestion, pleural effusion, or other obvious acute cardiopulmonary disease process. Lab results were non-concerning including levels of troponin, WBC, hemoglobin, hematocrit, electrolytes, renal function. The patient was reevaluated and reported that their symptoms were markedly improved. As the patient has a TURNER risk score less than 2, and a well 's score less than 2, the patient is at low risk of ACS or pulmonary emboli etiology of their symptoms. The patient is stable for discharge with outpatient follow-up. The patient is given follow-up and return instructions. The patient expressed understanding and agreed with the plan. The patient is discharged in stable condition. Critical care attestation.: If time is entered above; I have spent that time in minutes in the direct care of this critically ill patient, excluding procedure time. ED Disposition Clinical Impression: Acute chest pain Disposition: DC-01 TO HOME OR SELFCARE Is pt being admited?: No Does the pt Need Aspirin: No Condition: Stable Instructions: Chest Pain (ED), Diet for Ulcers and Gastritis (ED), Gastroesophageal Reflux Disease (ED) Prescriptions: Omeprazole Magnesium [PriLOSEC Otc] 20 mg PO QDAY #14 tablet. traMADol [Ultram 50 MG tab] 50 mg PO Q6HR PRN #12 tablet PRN Reason: Pain Referrals: PRIMARY CARE,MD [Primary Care Provider] - 3-5 Days Time of Disposition: 17:04
== END 2017-05-27 18:53 | disposition home or self-care (01) ==
LOC: ED 07:09
DX: R07.2 Precordial pain (principal); Z90.49 Acquired absence of other specified parts of digestive tract
CPT/HCPCS: 36415; 71046; 80048; 84484; 85007; 85025; 93005; 93010; 99284

== ENCOUNTER 2018-05-20 18:37 | Inpatient (IN) | payer OTHER, MEDICAID ==
--- NOTE | 2018-05-20 19:33 | Emergency Department Report ---
ED Abdominal Pain HPI - General Chief Complaint: Abdominal Pain Stated Complaint: STOMACH PAIN Time Seen by Provider: 05/20/18 19:27 Source: patient Mode of arrival: Wheelchair Limitations: No Limitations - History of Present Illness Initial Comments: Patient is 37-year-old female appears emergency with lower abdominal pain that started 1 hour ago. Patient states the pain started her lower abdomen radiating to her checo area. Patient states she is also having a slight discharge. Patient denies vaginal pain. Patient denies dysuria. Patient denies fever chills. Patient denies nausea vomiting. Patient denies diaphoresis. Patient denies chest pain shortness of breath. Patient states that the pain is a 10 out of 10. Patient describes as a cramping, sharp, stabbing pain. Patient states the pain is better with rest and worse with palpation and movement. MD Complaint: abdominal pain -: Sudden, hour(s) (1) Location: suprapubic Radiation: other Migration to: no migration Severity: severe Severity scale (0 -10): 10 Quality: cramping, stabbing, sharp Consistency: constant Improves With: rest Worsens With: movement Associated Symptoms: denies: nausea, vomiting, diarrhea, fever, chills, constipation, dysuria, hematemesis, hematochezia, melena, hematuria, anorexia, syncope - Related Data LMP (females 10-50): last week Allergies Allergy/AdvReac Type Severity Reaction Status Date / Time No Known Allergies Allergy Verified 01/04/17 08:50 ED Review of Systems ROS: Stated complaint: STOMACH PAIN Other details as noted in HPI Constitutional: denies: chills, fever Eyes: denies: eye pain, eye discharge, vision change ENT: denies: ear pain, throat pain Respiratory: denies: cough, shortness of breath, wheezing Cardiovascular: denies: chest pain, palpitations Endocrine: no symptoms reported Gastrointestinal: abdominal pain. denies: nausea, vomiting, diarrhea, constipation, hematemesis, melena, hematochezia Genitourinary: discharge. denies: urgency, dysuria Musculoskeletal: denies: back pain, joint swelling, arthralgia Skin: denies: rash, lesions Neurological: denies: headache, weakness, paresthesias Psychiatric: denies: anxiety, depression Hematological/Lymphatic: denies: easy bleeding, easy bruising ED Past Medical Hx - Past Medical History Previous Medical History?: Yes Hx Congestive Heart Failure: No Hx Diabetes: No Hx Asthma: No Hx COPD: No Additional medical history: Obesity - Surgical History Past Surgical History?: Yes Hx Cholecystectomy: Yes (2002) Additional Surgical History: Tubaligation (2001) - Family History Family history: no significant - Social History Smoking Status: Never Smoker Substance Use Type: None ED Physical Exam - General Limitations: No Limitations General appearance: alert, in no apparent distress - Head Head exam: Present: atraumatic, normocephalic - Eye Eye exam: Present: normal appearance - ENT ENT exam: Present: mucous membranes moist - Neck Neck exam: Present: normal inspection - Respiratory Respiratory exam: Present: normal lung sounds bilaterally. Absent: respiratory distress - Cardiovascular Cardiovascular Exam: Present: regular rate, normal rhythm. Absent: systolic murmur, diastolic murmur, rubs, gallop - GI/Abdominal GI/Abdominal exam: Present: soft, tenderness (suprapubic tenderness.), normal bowel sounds - External exam: Present: normal external exam Speculum exam: Present: vaginal discharge, cervical discharge Bi-manual exam: Present: cervical motion tendernes, uterine tenderness - Extremities Exam Extremities exam: Present: normal inspection - Back Exam Back exam: Present: normal inspection - Neurological Exam Neurological exam: Present: alert, oriented X3 - Psychiatric Psychiatric exam: Present: normal affect, normal mood - Skin Skin exam: Present: warm, dry, intact, normal color. Absent: rash ED Course Vital Signs 05/20/18 05/20/18 05/21/18 18:45 22:48 00:34 Temperature 99.5 F Pulse Rate 115 H 66 63 Respiratory 16 14 16 Rate Blood Pressure 137/84 Blood Pressure 110/60 102/58 [Right] O2 Sat by Pulse 100 100 97 Oximetry - Reevaluation(s) Reevaluation #1: Pelvic exam done with nurse in room. Tapuwa in room during entire exam. Patient noted to have cervical motion tenderness. Patient also noted to have copious amounts of purulent discharge from the cervix. 05/20/18 20:39 Reevaluation #2: Discussed all results with patient. Patient voiced understanding of results. Discussed plan of care and admission with patient. Patient agrees with plan of care. 05/20/18 23:40 - Consultations Consultation #1: BENEFITS CONSULTING ANALYST consult. Dr. Fuentes to admit patient to mother baby. 05/20/18 23:41 ED Medical Decision Making - Lab Data Result diagrams: 05/20/18 19:12 05/20/18 19:12 - Radiology Data Radiology results: report reviewed FINAL REPORT PROCEDURE: CT ABDOMEN PELVIS W CON TECHNIQUE: Computerized axial tomography of the abdomen and pelvis was performed after the IV injection of iodinated nonionic contrast. HISTORY: abd pain COMPARISON: No prior studies are available for comparison. FINDINGS: Lower Lung knowles: Small amount of dependent atelectasis. Upper Abdomen: Gallbladder is surgically absent. The liver showed no abnormalities. The adrenal glands, the pancreas and the spleen are unremarkable. Kidneys, Ureters and Urinary bladder: No abnormalities are seen. Retroperitoneum: Abdominal aorta appears normal. Nonspecific subcentimeter lymph nodes are seen in the retroperitoneum. No pathologically enlarged lymph nodes are identified. Bowel: No evidence of bowel obstruction. There is no ascites or free intraperitoneal gas. Normal- appearing appendix is seen in the right lower quadrant directed medially. No focal bowel loop abnormalities are seen. Small umbilical hernia containing adipose tissue is visualized. No herniated loops of bowel are seen. Reproductive organs: Uterus and left adnexa are unremarkable. Cystic changes seen in the right adnexa. A few small cysts are visualized, the largest measures 2 centimeters. Minimal free fluid is seen in the right side of the cul-de-sac. This is nonspecific. Other: No acute bony abnormalities are visualized. IMPRESSION: Cystic change visualize right adnexa as described. This is nonspecific and may represent maturing follicles. Minimal nonspecific free fluid is seen in the cul-de-sac. Prior cholecystectomy. Small umbilical hernia present as described. No other abnormalities are seen. Transcribed By: RENEE Dictated By: SUPRIYA LEWIS MD Electronically Authenticated By: SUPRIYA LEWIS MD Signed Date/Time: 05/20/18 2300 FINAL REPORT EXAM: US TRANSVAGINAL HISTORY: lower abd pain. vag d/c last menstrual period April 28, 2018 TECHNIQUE: Transvaginal grayscale, color flow and Doppler waveform imaging of the pelvis was performed. Comparison: Transabdominal study also performed today FINDINGS: Endometrial thickness measures 16.2 millimeters. The endometrium is heterogeneous in appearance. The uterus is otherwise unremarkable. The left ovary measures 2.2 centimeters x 2 centimeters x 1.8 centimeters, is normal in appearance and contains follicles. The right ovary measures 5.3 centimeters x 3.1 centimeters x 3.2 centimeters and contains an approximately 2 centimeters cyst. Flow is demonstrated in both ovaries utilizing color flow and Doppler waveform imaging. Free fluid is demonstrated in the cul-de-sac. IMPRESSION: 1. Increased thickness of the endometrium which is heterogeneous in appearance. 2. Approximately 2 centimeter cystic structure right ovary. 3. Free fluid is demonstrated in the cul-de-sac. If this patient is not clinically , CT abdomen and pelvis may be helpful for further evaluation. If this patient is clinically , an ectopic gestation cannot be excluded. Transcribed By: ED Dictated By: HOUSTON SHEIKH MD Electronically Authenticated By: HOUSTON SHEIKH MD Signed Date/Time: 05/20/182139 - Medical Decision Making This 37-year-old female that presents emergency room with abdominal pain and pelvic pain. Patient found to have PID. Patient had transvaginal ultrasound done which showed enlarged uterus. Patient's abdominal CT is essentially nega tive except for ovarian cyst and free fluid in the cul-de-sac.. Patient's labs are essentially unremarkable except for a UTI. Patient had a pelvic exam done which showed cervical tenderness and copious amounts of mucus she purulent discharge from the cervix. Patient had a wet prep and gonorrhea and chlamydia done. Patient begin IV antibiotics. Patient was admitted to the BENEFITS CONSULTING ANALYST service for further violation treatment. - Differential Diagnosis PID. STD. abd pain. UTI. Critical Care Time: Yes Critical care attestation.: If time is entered above; I have spent that time in minutes in the direct care of this critically ill patient, excluding procedure time. Critical Care Time: 55 minutes for cc time ED Disposition Clinical Impression: Vaginal discharge, PID (acute pelvic inflammatory disease), Enlarged uterus Abdominal pain Qualifiers: Abdominal location: lower abdomen, unspecified Qualified Code(s): R10.30 - Lower abdominal pain, unspecified UTI (urinary tract infection) Qualifiers: Urinary tract infection type: acute cystitis Hematuria presence: with hematuria Qualified Code(s): N30.01 - Acute cystitis with hematuria Disposition: OP ADMIT IP TO THIS HOSP Is pt being admited?: Yes Does the pt Need Aspirin: No Condition: Critical Time of Disposition: 23:48
[2018-05-20 19:48] LABS: Basophils % (Auto) 0.2 % (0.0-1.8); Eosinophils % (Auto) 0.8 % (0.0-4.3); Hematocrit 33.1 % (30.3-42.9); Hemoglobin 10.3 gm/dl (10.1-14.3); Lymphocytes # (Auto) 1.2 K/mm3 (1.2-5.4); Lymphocytes % (Auto) 25.7 % (13.4-35.0); Mean Corpuscular HGB Conc 31 % (30-34); Mean Corpuscular Volume 81 fl (79-97); Monocytes # (Auto) 0.3 K/mm3 (0.0-0.8); Monocytes % (Auto) 6.7 % (0.0-7.3); Platelet Count 282 K/mm3 (140-440); Red Cell Distribution Width 14.2 % (13.2-15.2)
[2018-05-20 19:52] LABS: Alanine Aminotransferase 8 units/L (7-56); Albumin 4.1 g/dL (3.9-5); BUN/Creatinine Ratio 10; Blood Urea Nitrogen 7 mg/dL (7-17); Calcium 8.9 mg/dL (8.4-10.2); Hemolysis Index 4
[2018-05-20 19:55] LABS: Mean Corpuscular Hemoglobin 25 pg (28-32)
[2018-05-20 20:40] LABS: Bacteria,Urine 1+ /HPF (Negative); Bilirubin,Urine NEG (Negative); Blood,Urine SM (Negative); Color,Urine Straw (Yellow); Mucus,Urine FEW /HPF; Protein,Urine <15 mg/dL mg/dL (Negative); Urobilinogen,Urine < 2.0 mg/dL (<2.0)
--- NOTE | 2018-05-20 21:35 | Ultrasound Report ---
FINAL REPORT EXAM: US PELVIC COMPLETE HISTORY: pain last menstrual period April 28, 2018. TECHNIQUE: Transabdominal grayscale and color-flow imaging of the pelvis was performed. Comparison: Transvaginal study also performed today FINDINGS: The urinary bladder is mildly distended and unremarkable in appearance. The uterus measures 9.4 centimeters x 5.1 centimeters x 5.6 centimeters and is unremarkable in appear ance. Endometrial thickness measures 16 millimeters. The ovaries are not visualized on the transabdominal study. Free fluid is demonstrated in the cul-de-sac. IMPRESSION: 1. Increased thickness of the endometrium (16 millimeters). 2. Free fluid is demonstrated in the cul-de-sac. 3. The ovaries are not visualized. Please see report of transvaginal study also performed today.
--- NOTE | 2018-05-20 21:40 | Ultrasound Report ---
FINAL REPORT EXAM: US TRANSVAGINAL HISTORY: lower abd pain. vag d/c last menstrual period April 28, 2018 TECHNIQUE: Transvaginal grayscale, color flow and Doppler waveform imaging of the pelvis was perform ed. Comparison: Transabdominal study also performed today FINDINGS: Endometrial thickness measures 16.2 millimeters. The endometrium is heterogeneous in appearance. The uterus is otherwise unremarkable. The left ovary measures 2.2 centimeters x 2 centimeters x 1.8 centimeters, is normal in appearance an d contains follicles. The right ovary measures 5.3 centimeters x 3.1 centimeters x 3.2 centimeters and contains an approxim ately 2 centimeters cyst. Flow is demonstrated in both ovaries utilizing color flow and Doppler waveform imaging. Free fluid is demonstrated in the cul-de-sac. IMPRESSION: 1. Increased thickness of the endometrium which is heterogeneous in appearance. 2. Approximately 2 centimeter cystic structure right ovary. 3. Free fluid is demonstrated in the cul-de-sac. If this patient is not clinically , CT abdomen and pelvis may be helpful for further evaluati on. If this patient is clinically , an ectopic gestation cannot be excluded.
--- NOTE | 2018-05-20 23:00 | Cat Scan Report ---
FINAL REPORT PROCEDURE: CT ABDOMEN PELVIS W CON TECHNIQUE: Computerized axial tomography of the abdomen and pelvis was performed after the IV inject ion of iodinated nonionic contrast. HISTORY: abd pain COMPARISON: No prior studies are available for comparison. FINDINGS: Lower Lung knowles: Small amount of dependent atelectasis. Upper Abdomen: Gallbladder is surgically absent. The liver showed no abnormalities. The adrenal gland s, the pancreas and the spleen are unremarkable. Kidneys, Ureters and Urinary bladder: No abnormalities are seen. Retroperitoneum: Abdominal aorta appears normal. Nonspecific subcentimeter lymph nodes are seen in the retroperitoneum. No pathologically enlarged lym ph nodes are identified. Bowel: No evidence of bowel obstruction. There is no ascites or free intraperitoneal gas. Normal-appe aring appendix is seen in the right lower quadrant directed medially. No focal bowel loop abnormaliti es are seen. Small umbilical hernia containing adipose tissue is visualized. No herniated loops of remy wel are seen. Reproductive organs: Uterus and left adnexa are unremarkable. Cystic changes seen in the right adnexa . A few small cysts are visualized, the largest measures 2 centimeters. Minimal free fluid is seen in the right side of the cul-de-sac. This is nonspecific. Other: No acute bony abnormalities are visualized. IMPRESSION: Cystic change visualize right adnexa as described. This is nonspecific and may represent maturing fol licles. Minimal nonspecific free fluid is seen in the cul-de-sac. Prior cholecystectomy. Small umbilical hernia present as described. No other abnormalities are seen.
[2018-05-20] MEDS ORDERED: ROCEPHIN/NS 1 GM/50 ML 1 GM/50 ML BAG IV ONE (23:43)
[2018-05-20] MEDS ORDERED: DOXYCYCLINE HYCLATE 100 MG in NACL 0.9% 250ML 250 ML IV ONE (23:43)
[2018-05-21] MEDS: PERCOCET 5/325 PO PRN ×3 (03:16→16:31)
[2018-05-21] MEDS: MOTRIN PO PRN ×2 (03:16→23:55)
[2018-05-21] MEDS: D5LR 1,000 ML IV SCH ×2 (03:17→14:03)
[2018-05-21] MEDS: ceFAZolin 2 GM in NACL 0.9% 100 ML IV SCH ×4 (05:22→23:57)
--- NOTE | 2018-05-21 13:12 | Short Stay Summary ---
Short Stay Documentation Date of service: 05/21/18 Narrative H&P: 37y/o female presents to the ED with the complaint of pelvic pain and vaginal discharge. ED evaluation consistent with findings of PID. - History Principal diagnosis: PID Past Medical History: No medical history Past Surgical History: Other (tubal ligation) Social history: single - Allergies and Medications Current Medications: Allergies No Known Allergies Allergy (Verified 01/04/17 08:50) Active Medications Cefazolin Sodium 2 gm/ Sodium (Chloride) 100 mls @ 200 mls/hr IV Q6HR FERNANDO Last Admin: 05/21/18 12:06 Dose: 200 mls/hr Documented by: Dextrose/Lactated Ringer's ([email or web address]) 1,000 mls @ 125 mls/hr IV DIRECT FERNANDO Last Admin: 05/21/18 03:17 Dose: 125 mls/hr Documented by: Doxycycline Hyclate 100 mg/ (Sodium Chloride) 250 mls @ 250 mls/hr IV Q12HR FERNANDO; Protocol Ibuprofen (Motrin) 800 mg PO Q8H PRN PRN Reason: Pain, Mild (1-3) Last Admin: 05/21/18 03:16 Dose: 800 mg Documented by: Oxycodone/Acetaminophen (Percocet 5/325) 2 tab PO Q6H PRN PRN Reason: Pain, Moderate (4-6) Last Admin: 05/21/18 08:55 Dose: 2 tab Documented by: - Physical exam General appearance: no acute distress Integumentary: no rash HEENT: Atraumatic Lungs: Clear to auscultation Breasts: deferred Heart: Regular rate Gastrointestinal: normal - Hospital course Hospital course: Patient admitted for findings of PID. Patient received IV antibiotics with improvement in her symptoms. - Disposition Condition at discharge: Good Disposition: DC-01 TO HOME OR SELFCARE Short Stay Discharge Plan Activity: no restrictions Diet: regular Additional Instructions: Followup as needed with primary provider
[2018-05-21] MEDS: DOXYCYCLINE HYCLATE 100 MG in NACL 0.9% 250ML 250 ML IV SCH (14:06)
[2018-05-22] MEDS: DOXYCYCLINE HYCLATE 100 MG in NACL 0.9% 250ML 250 ML IV SCH (02:21)
[2018-05-22] MEDS: D5LR 1,000 ML IV SCH (02:22)
[2018-05-22] MEDS: MOTRIN PO PRN (06:30)
[2018-05-22] MEDS: ceFAZolin 2 GM in NACL 0.9% 100 ML IV SCH (06:31)
[2018-05-22 07:46] VITALS: BP 103/49
== END 2018-05-22 10:00 | disposition home or self-care (01) | DRG 758 ==
LOC: ED 18:37 → OB 23:48
PROVIDERS: ADMIT Obstetrics & Gynecology; ATTEND Obstetrics & Gynecology
DX: N73.9 Female pelvic inflammatory disease, unspecified (principal); Z68.43 Body mass index [BMI] 50.0-59.9, adult; N30.01 Acute cystitis with hematuria; E66.9 Obesity, unspecified; Z90.49 Acquired absence of other specified parts of digestive tract; Z98.51 Tubal ligation status
CPT/HCPCS: 36415; 74177; 76830; 76856; 80053; 81001; 82140; 85025; 87210; 87591; G0378; J0690; J0696; J7050; J7121; Q9967

== ENCOUNTER 2022-02-17 08:14 | Emergency (ER) | payer OTHER ==
[2022-02-17] MEDS ORDERED: IBUPROFEN 800 MG TAB PO ONE (11:50)
[2022-02-17] MEDS ORDERED: CYCLOBENZAPRINE 10 MG TAB PO ONE (11:51)
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
[2022-02-17 12:54] VITALS: BP 142/84
== END 2022-02-17 12:49 | disposition home or self-care (01) ==
LOC: ED 08:14
DX: M79.18 Myalgia, other site (principal); R07.89 Other chest pain; Z90.49 Acquired absence of other specified parts of digestive tract; Z79.899 Other long term (current) drug therapy; V87.7XXA Person injured in collision between other specified motor vehicles (traffic), initial encounter; Y93.89 Activity, other specified; Y92.488 Other paved roadways as the place of occurrence of the external cause; Y99.8 Other external cause status
CPT/HCPCS: 99283